=== PATIENT | male | born 1965 | race Caucasian/White ===

== ENCOUNTER 2022-08-03 17:12 | Emergency (ER) | payer SELFPAY ==
[2022-08-03 17:22] VITALS: BP 128/80; PULSE 80; RESP 20; TEMP 37.2; O2SAT 96
--- NOTE | 2022-08-03 17:30 | ED.URI ---
HPI - URI/Sore Throat General Chief Complaint: Upper Respiratory Infection Stated Complaint: Sinus Congestion/Cough Source: patient, family and RN notes reviewed History of Present Illness HPI Narrative: 57-year-old male presents urgent care at bedside. Patient states he has been having a cough and intermittent congestion for the last 5-6 days. Patient denies any congestion at this time and states it comes and goes. Patient states his cough is much worse at nighttime it is worse when he is laying down. Patient reports intermittent low-grade fevers. Denies any chest pain, vomiting, or diarrhea. Patient is taking Mucinex at home with minimal relief. Some parts of this dictation were generated by voice recognition software and may contain typographical and/or grammatical inaccuracies. Related Data Allergies Allergy/AdvReac Type Severity Reaction Status Date / Time Penicillins Allergy Severe HIVES, Unverified 02/13/09 08:35 FEVER Review of Systems Review of Systems: Pertinent positives and pertinent negatives per HPI. PMFSH Comments At the time of my signature, I reviewed and agree with the nursing past medical, surgical, social, and family history. There is no relevant family history pertinent to the patient complaint. Exam Narrative: GENERAL: This is a well-nourished, well-developed patient, in no apparent distress. HEAD: normocephalic, atraumatic. EYES: Sclera clear/white. Vision is grossly intact. EARS: External ears normal, auditory canals clear and without drainage, TMs normal without perforation. Hearing grossly intact. NOSE: External nose normal with no obvious nasal discharge, nares without redness, no rhinorrhea. THROAT: Mucous membranes moist, posterior pharynx clear. NECK: Neck supple, non-tender without lymphadenopathy, masses or thyromegaly. CARDIOVASCULAR: Regular rate and rhythm without murmurs, gallops, or rubs. RESPIRATORY: Clear to auscultation. Breath sounds equal bilaterally. No wheezes, rales, or rhonchi. SKIN: warm, intact with no suspicious lesions or rash, good texture and turgor. NEURO: awake, alert, and oriented to person, place and time. There were no obvious focal neurologic abnormalities. Course Course Level of Care: Express Care Visit Vital Signs Vital signs: Vital Signs Temperature 99.0 F 08/03/22 17:22 Pulse Rate 80 08/03/22 17:22 Respiratory Rate 20 08/03/22 17:22 Blood Pressure 128/80 08/03/22 17:22 Pulse Oximetry 96 08/03/22 17:22 Oxygen Delivery Room Air 08/03/22 17:22 Temperature 99.0 F 08/03/22 17:22 Pulse Rate 80 08/03/22 17:22 Respiratory Rate 20 08/03/22 17:22 Blood Pressure 128/80 08/03/22 17:22 Pulse Oximetry 96 08/03/22 17:22 Oxygen Delivery Room Air 08/03/22 17:22 Reviewed MDM - URI/Sore Throat MDM Narrative Medical decision making narrative: Take steroids as directed. May use the inhaler every 4-6 hours as needed for coughing. Increase fluids at home. Avoid any and all smoke. May use a humidifier in the bedroom. Increase your Vitamin C. Follow-up with personal physician in 2-5 days. Viral illness may last between 7-12days; antibiotic is NOT recommended at this time. Recommend antihistamine such as Benadryl at night time and Claritin/Zyrtec/Christel during the day. Increase your Vitamin C intake. Steam from hot showers help with congestion. Use inhaler as needed for cough, wheezing, shortness of breath or chest tightness. Also, recommend symptomatic treatment includes: rest, fluids, increase humidity of the air at home with a humidifier in the bedroom. Recommend Acetaminophen or nonsteroidal anti-inflammatory agents(NSAIDs) as directed in the bottle to reduce fever and/pain/headache. Avoid smoking/second-hand smoke. Limit visits to areas with large crowds. Frequent hand washing or hand electrical maintenance engineer is one of the best ways to prevent spread of infection. Differential Diagnosis Differential diagnosis: Likely upp
== END 2022-08-03 17:42 | disposition home or self-care (01) ==
PROVIDERS: Emergency Provider Nurse Practitioner Family; PCP Internal Medicine
DX: J40 Bronchitis, not specified as acute or chronic (principal); J06.9 Acute upper respiratory infection, unspecified; H54.40 Blindness, one eye, unspecified eye
CPT/HCPCS: 99213; G0463

== ENCOUNTER 2024-02-16 15:48 | Emergency (ER) | payer OTHER, SELFPAY ==
[2024-02-16 15:56] VITALS: BP 141/78; PULSE 70; RESP 16; TEMP 36.7; O2SAT 97
--- NOTE | 2024-02-16 16:23 | ED.BACK ---
HPI - Back Pain/Injury General Chief Complaint: Back Pain/Injury Stated Complaint: Pain in right gluteus Time Seen by Provider: 02/16/24 16:06 Source: patient and RN notes reviewed Mode of arrival: ambulatory Limitations: no limitations History of Present Illness HPI Narrative: Patient presents today complaining of right-sided sciatic pain times 4-5 weeks with occasional radiation to the right foot and occasional tingling of the right foot. Patient states he has had this pain several times in the past, usually once a year. He currently rates his pain 5/10 and has been taking ibuprofen with some minimal relief. Denies loss of bowel or bladder control. He sees a chiropractor who has previously diagnosed with a bulging disc. Her recommendation from his chiropractor, he comes in today seeking a prescription for a steroid. He has not seen his primary in many years Related Data Allergies Allergy/AdvReac Type Severity Reaction Status Date / Time Penicillins Allergy Severe HIVES, Unverified 02/16/24 16:15 FEVER Review of Systems Review of Systems: CONSTITUTIONAL: Denies body aches, fever, chills, or sweats. EYES: Denies visual changes, redness, or discharge. ENT: Denies rhinorrhea, congestion, sore throat, or otalgia. CARDIOVASCULAR: Denies chest pain, palpitations, or edema. RESPIRATORY: Denies cough or dyspnea. GASTROINTESTINAL: Denies abdominal pain, nausea, vomiting, or diarrhea. GENITOURINARY: Denies dysuria or hematuria. SKIN: Denies rash, itching, or wounds. MUSCULOSKELETAL: Denies back pain, joint pain, or myalgia.+ right buttock pain NEUROLOGIC: Denies headache, numbness, tingling, or weakness. PSYCH: Denies depression or anxiety. PMFSH Comments At time of signature, I have reviewed and agree with nursing past medical, surgical, social and family history unless otherwise noted. Please see nursing chart for further information. There is no relevant family history pertinent to the presenting complaint Exam Narrative: GENERAL: Well-appearing, well-nourished, and in no acute distress. HEAD: Normocephalic, atraumatic. EYES: EOMI. No redness or drainage. Conjunctivae normal. ENT: Mucous membranes pink and moist. NECK: Normal AROM. CHEST: No respiratory distress. MUSCULOSKELETAL: No bony tenderness of the spine. No tenderness of the bilateral lower lumbar paraspinal muscles.+ right SI joint tenderness. Distal sensation intact. Saddle sensation intact. Capillary refill normal. 5/5 strength in BLE. EXTREMITIES: Normal range of motion. No edema. SKIN: Warm, dry, no rash. Capillary refill normal. Normal skin turgor. NEURO: No focal deficits. Alert and oriented x3. Gait steady. PSYCH: Normal affect. No signs of depression or anxiety. Course Course Level of Care: Express Care Visit Vital Signs Vital signs: Vital Signs Temperature 98.1 F 02/16/24 15:56 Pulse Rate 70 02/16/24 15:56 Respiratory Rate 16 02/16/24 15:56 Blood Pressure 141/78 H 02/16/24 15:56 Pulse Oximetry 97 02/16/24 15:56 Oxygen Delivery Room Air 02/16/24 15:56 Temperature 98.1 F 02/16/24 15:56 Pulse Rate 70 02/16/24 15:56 Respiratory Rate 16 02/16/24 15:56 Blood Pressure 141/78 H 02/16/24 15:56 Pulse Oximetry 97 02/16/24 15:56 Oxygen Delivery Room Air 02/16/24 15:56 Reviewed MDM - Back Pain/Injury MDM Narrative Medical decision making narrative: Patient will be treated with short course of prednisone and some Flexeril. Recommend patient initiate care with a new PCP or his old PCP for further evaluation. Anticipatory guidance given. Differential Diagnosis Differential diagnosis: Likely lumbar radiculopathy, sciatica and strain of lumbar region Critical Care Time Critical Care Time Critical Care Time: No Discharge Plan Discharge Clinical Impression: Acute right-sided back pain with sciatica Patient Disposition: Home, Self-Care Condition: Stable Instructions: Scia
== END 2024-02-16 16:30 | disposition home or self-care (01) ==
PROVIDERS: Emergency Provider Nurse Practitioner; PCP Internal Medicine
DX: M54.41 Lumbago with sciatica, right side (principal)
CPT/HCPCS: 99213; G0463

== ENCOUNTER 2024-02-21 15:12 | Emergency (ER) | payer OTHER, SELFPAY ==
--- NOTE | ~2024-02-21 | XR_ITS ---
3 VIEWS LUMBAR SPINE Ordering provider: Ivory Loco NP History: . lumbar spine pain and sciatica . Comparison: None. FINDINGS: VERTEBRAL BODIES: No visible fracture or subluxation. Degenerative changes of the spine. DISK SPACES: Narrowing of the disc L3-L4, L4-L5 and L5-S1. 4 L5 and L5-S1 facet joint disease. Bilateral sacroiliacs. SOFT TISSUES: Normal. IMPRESSION: No acute osseous abnormality lumbar spine. Multilevel degenerative disc disease. Reviewed, dictated and finalized at location A.
[2024-02-21 15:20] VITALS: BP 136/85; PULSE 91; RESP 20; TEMP 37.2; O2SAT 97
--- NOTE | 2024-02-21 16:09 | ED.BACK ---
HPI - Back Pain/Injury General Chief Complaint: Back Pain/Injury Stated Complaint: Low Back Pain Time Seen by Provider: 02/21/24 16:09 Source: patient, RN notes reviewed and old records reviewed Mode of arrival: ambulatory Limitations: no limitations Related Data Allergies Allergy/AdvReac Type Severity Reaction Status Date / Time Penicillins Allergy Severe HIVES, Unverified 02/21/24 15:47 FEVER Review of Systems Review of Systems: CONSTITUTIONAL: Denies fever, chills, or sweats. EYES: Denies visual changes, redness, or discharge. ENT: Denies rhinorrhea, congestion, sore throat, or otalgia. CARDIOVASCULAR: Denies chest pain, palpitations, or edema. RESPIRATORY: Denies cough or dyspnea. GASTROINTESTINAL: Denies abdominal pain, nausea, vomiting, or diarrhea. GENITOURINARY: Denies dysuria or hematuria. SKIN: Denies rash or itching. MUSCULOSKELETAL: Denies back pain, joint pain, or myalgia. NEUROLOGIC: Denies headache, numbness, or weakness. PSYCHIATRIC: Denies anxiety or depression. All systems reviewed & are unremarkable except as noted in HPI and below PMFSH Comments At time of signature, agree with nursing past medical, surgical, social and family history. There is no relevant family history pertinent to the presenting complaint Exam Narrative: GENERAL: Well-appearing, well-nourished, and in no acute distress. HEAD: Normocephalic, atraumatic. EYES: PERRLA and EOMI. ENT: Nares clear, no rhinorrhea or epistaxis. Mucous membranes moist. NECK: Supple. CHEST: Clear to auscultation. No respiratory distress. HEART: Regular rate and rhythm. No murmur heard. Normal peripheral pulses. ABDOMEN: Soft, nontender, nondistended, normal active bowel sounds. EXTREMITIES: Normal range of motion. No edema. SKIN: Warm, dry, no rash. NEURO: No focal deficits. Alert and oriented x3. Course Course Emergency Course: Patient is aware of diagnosis, understands and agrees to treatment plan.? Anticipatory guidance given.? Patient agrees to follow-up as directed and is aware of reasons to seek care at the emergency department. Portions of this record may have been created with voice recognition software Level of Care: Express Care Visit Vital Signs Vital signs: Vital Signs Temperature 37.2 C 02/21/24 15:20 Pulse Rate 91 02/21/24 15:20 Respiratory Rate 20 02/21/24 15:20 Blood Pressure 136/85 02/21/24 15:20 Pulse Oximetry 97 02/21/24 15:20 Oxygen Delivery Room Air 02/21/24 15:20 Temperature 37.2 C 02/21/24 15:20 Pulse Rate 91 02/21/24 15:20 Respiratory Rate 20 02/21/24 15:20 Blood Pressure 136/85 02/21/24 15:20 Pulse Oximetry 97 02/21/24 15:20 Oxygen Delivery Room Air 02/21/24 15:20 Reviewed MDM - Back Pain/Injury Imaging Data Attestation: I personally reviewed and interpreted this imaging study as follows: Radiologist's impression: Close Lumbar Spine X-Ray (Signed) Nj Styles - 02/21/24 16:44 Launch?[facility] [place] [address] XRay Report Signed Patient: Carlos Sánchez : 1965 MR#: [id number] Age: 59 Acct:[id number] Loc: [facility] ADM Date: 02/21/24Attending Dr: Ordering Physician: Ivory Loco APRN Date of Service: 02/21/24 Procedure(s): XR lumbar spine 2-3V Accession Number(s): [id number] cc: ROD TAPE OPERATOR PHYSICIAN; Ivory Loco APRN~ 3 VIEWS LUMBAR SPINE Ordering provider: Ivory Loco NP History: . lumbar spine pain and sciatica . Comparison: None. FINDINGS: VERTEBRAL BODIES: No visible fracture or subluxation. Degenerative changes of the spine. DISK SPACES: Narrowing of the disc L3-L4, L4-L5 and L5-S1. 4 L5 and L5-S1 facet joint disease. Bilateral sacroiliacs. SOFT TISSUES: Normal. IMPRESSION: No acute osseous abnormality lumbar spine. Multilevel degenerative disc disease. Reviewed, dictated and finalized at location A. Dictated By: Nj Styles MD 02/21/24 1644 Signed By: <Electronically signed by Nj Styles MD in OV> Discharge Plan Discharge Clinical Impression: Sciatica Qualifiers: Laterality: right Qualified Code(s): M54.31 - Sciatica, right side Patient Disposition: Home, Self-Care Condition: Stable Instructions: Antibiotic Form, Sacroiliitis (ED) Additional Instructions: Ice and heat to the area for 20-30 minutes Gentle stretching exercises Gentle massage Caution with lifting, bending, stooping, twisting Avoid pushing, pulling take muscle relaxants as directed--caution drowsiness and no driving or alcohol Anti-inflammatory medicine as directed--take with food He may take the muscle relaxant and anti-inflammatory at the same time Pain medicine as directed for severe pain--caution drowsiness-no driving or alcohol. If this medicine is a narcotic, you can become constipated. He may want to start a laxative right away. Follow-up with your PCP if not improving in 5-7 days If your symptoms persist, change or worsen significantly before you can contact your personal physician then please, without delay, go to the emergency department for further evaluation. Follow-up with PCP in 7-10 days or sooner if needed Follow up with PCP soon in regards to your blood pressure which is elevated above threshold for referral. Blood pressure above 120/80 may indicate pre-hypertension. 136/85 Prescriptions: New prednisone 20 mg tablet 20 mg PO BID Qty: 10 0RF Rx Instructions: take with food Follow-up/Referrals: PHYSICIAN,ROD TAPE OPERATOR [Primary Care Provider] - Time of Disposition: 17:11 Quality [place]rellita Coma Scale Eyes: Open Verbal: Oriented and Alert Motor: Follows Commands [place] Coma Total Score: 15
== END 2024-02-21 17:15 | disposition home or self-care (01) ==
PROVIDERS: Emergency Provider Registered Nurse
DX: M54.31 Sciatica, right side (principal); H54.61 Unqualified visual loss, right eye, normal vision left eye
CPT/HCPCS: 72100; 99213; G0463